=== PATIENT | female | born 1945 | race Caucasian/White ===

== ENCOUNTER 2019-05-23 05:50 | Day surgery (SDC) | payer MEDICARE ==
[2019-05-23] MEDS ORDERED: MAGNESIUM SULFATE 8 MEQ(1GM)/2ML VIAL IV ONE (05:51)
[2019-05-23] MEDS ORDERED: MIDAZOLAM HCL 2MG/2ML VIAL IV ONE (05:51)
[2019-05-23] MEDS ORDERED: DEXAMETHASONE 4 MG/ML 1ML VIAL IVP ONE (05:51)
[2019-05-23] MEDS ORDERED: ROPIVACAINE HCL (NAROPIN) /PF 5MG/ML 20ML VIAL IV ONE (05:51)
[2019-05-23] MEDS ORDERED: GENTAMICIN SULFATE 40 MG/ML VIAL IV ONE (05:51)
[2019-05-23] MEDS ORDERED: LIDOCAINE 2% MDV (20MG/ML) 20ML VIAL IV ONE (05:51)
[2019-05-23] MEDS ORDERED: PROPOFOL 10 MG/ML VIAL IV ONE ×2 (05:51)
[2019-05-23] MEDS ORDERED: VANCOMYCIN 1GM/200ML PREMIX 1 GM/200 ML PIGGYBACK IVPB ONE (06:00)
[2019-05-23] MEDS ORDERED: METOCLOPRAMIDE 10 MG TABLET PO ONE (06:00)
[2019-05-23] MEDS ORDERED: ACETAMINOPHEN 500 MG TABLET PO ONE (06:00)
[2019-05-23] MEDS ORDERED: FAMOTIDINE 20MG TABLET PO ONE (06:00)
[2019-05-23] MEDS ORDERED: SCOPOLAMINE 1 PATCH TDSY TD ONE (06:00)
[2019-05-23] MEDS ORDERED: CEFAZOLIN 2 Gram 2 GM/50 ML BAG IVPB ONE (06:00)
[2019-05-23 06:13] LABS: URINE APPEARANCE SL CLOUDY; URINE BILIRUBIN NEGATIVE (NEGATIVE); URINE BLOOD NEGATIVE (NEGATIVE); URINE COLOR YELLOW; URINE GLUCOSE (UA) NEGATIVE (NEGATIVE); URINE KETONE NEGATIVE (NEGATIVE); URINE LEUKOCYTE ESTERASE SMALL (NEGATIVE); URINE NITRITE NEGATIVE (NEGATIVE); URINE PROTEIN NEGATIVE (NEGATIVE); URINE UROBILINOGEN 0.2 E.U./dL (0.20 - 1.00)
[2019-05-23 06:20] LABS: URINE RBC 0 - 2 (NONE SEEN)
[2019-05-23 06:21] LABS: URINE BACTERIA 2+; URINE MUCUS MODERATE; URINE WBC 16 - 20 (0-2/hpf)
[2019-05-23] MEDS ORDERED: RINGERS SOLUTION,LACTATED 1,000 ML IV ONE ×3 (06:30→09:56)
[2019-05-23 06:51] LABS: ABO GROUP O; ANTIBODY SCREEN NEGATIVE (NEGATIVE); RH TYPE POSITIVE
[2019-05-23] MEDS ORDERED: ACETAMINOPHEN 325 MG TAB PO PRN (08:21)
[2019-05-23] MEDS ORDERED: TRAMADOL HCL 50 MG TABLET PO PRN ×2 (08:21)
[2019-05-23] MEDS ORDERED: KETOROLAC 30 MG/ML VIAL IVP PRN (08:21)
[2019-05-23] MEDS ORDERED: MAGNESIUM HYDROXIDE 30 ML UDC PO PRN (08:21)
[2019-05-23] MEDS ORDERED: HYDROCODONE/APAP 5/325MG TABLET PO PRN ×2 (08:21)
[2019-05-23] MEDS ORDERED: HYDROCODONE/APAP 7.5/325MG TABLET PO PRN (08:21)
[2019-05-23] MEDS ORDERED: ONDANSETRON 4 MG ODT TABLET SL PRN (08:21)
[2019-05-23] MEDS ORDERED: ACETAMINOPHEN W/ CODEINE 300MG/60MG TABLET PO PRN (08:21)
[2019-05-23] MEDS ORDERED: DIPHENHYDRAMINE HCL 25 MG CAPSULE PO PRN (08:21)
[2019-05-23] MEDS ORDERED: AL HYDROX/MAG HYDROX 30ML UD PO PRN (08:21)
[2019-05-23] MEDS ORDERED: PROMETHAZINE HCL 25 MG TABLET PO PRN (08:21)
[2019-05-23] MEDS ORDERED: HYDROMORPHONE HCL 2 MG/ML VIAL IM PRN ×2 (08:21)
[2019-05-23] MEDS ORDERED: METOCLOPRAMIDE 10 MG TABLET PO PRN (08:21)
[2019-05-23] MEDS ORDERED: NALOXONE 0.4 MG/1 ML VIAL IVP PRN (08:21)
[2019-05-23] MEDS ORDERED: ACETAMINOPHEN W/ CODEINE 300MG/30MG TABLET PO PRN (08:21)
[2019-05-23] MEDS ORDERED: BISACODYL 10 MG SUPP RC PRN (08:21)
[2019-05-23] MEDS ORDERED: BUPIVACAINE 0.5% W/EPI MPF 30 ML VIAL SQ ONE (08:46)
[2019-05-23] MEDS ORDERED: BUPIVACAINE LIPOSOME 266MG/20ML VIAL SQ ONE (08:46)
[2019-05-23] MEDS ORDERED: TRANEXAMIC ACID 1,000 MG/10 ML ML IU ONE (08:46)
[2019-05-23] MEDS ORDERED: TRANEXAMIC ACID 1,000 MG/10 ML ML IVPB ONE (08:49)
[2019-05-23] MEDS ORDERED: DEXTROSE 5 % AND 0.9 % NACL 1,000 ML IV PRN (10:30)
[2019-05-23] MEDS ORDERED: VANCOMYCIN HCL 500 MG in 0.9 % SODIUM CHLORIDE 100ML 100 ML IVPB SCH (11:00)
[2019-05-23] MEDS: ACETAMINOPHEN W/ CODEINE 300MG/30MG TABLET PO PRN ×2 (11:23→14:40)
--- NOTE | 2019-05-23 13:20 | Rehab Evaluation ---
Patient Information - Patient Information Diagnosis: R knee DJD Ordered Treatment: PT Evaluate and Treat Status: Initial Evaluation Surgery: Yes (R TKA) Date of Surgery: 05/23/19 Past Medical/Surgical Hx: PAST MEDICAL/SURGICAL HISTORY Past Surgical History eyelid sx; colonoscopy; EGD; PMH - Respiratory Hx Respiratory Disorders Yes Hx Sleep Apnea Yes Hx of CPAP Yes Hx of SOB Yes: exertional only PMH - Cardiovascular Hx Cardiovascular Disorders Yes Hx Edema Yes: little in feet at end of day Hx Hypertension Yes: meds good control Hx Irregular Heartbeat Yes: SVT rx adenosine x3 Hx Palpitations Yes: with SVT Exercise Tolerance Good Comment: avid golfer-3x week PMH - Neuro Hx Neurological Disorders No PMH - GI Hx Gastrointestinal Disorders Yes Hx Abdominal Pain Yes: occasional Hx Gastroesophageal Reflux Yes Hx Ulcer Yes: ?? has taken zantac PMH - Hx Genitourinary Disorders Yes Hx Bladder Problem Yes: stress incont with sneezing PMH - Endocrine Hx Endocrine Disorders Yes Hx Diabetes prediabetic- last A1C 6.2 Hx Thyroid Disease Yes PMH - Musculoskeletal Hx Musculoskeletal Disorders Yes Hx Arthritis Yes: knees,hands,neck and back PMH - Psych Hx Psychiatric Problems Yes Hx Anxiety Yes: "luiza got alot of stress" PMH - Hematology/Oncology Hx Hematology/Oncology No Disorders Premorbid Status: Detail (The patient was independent with all mobility prior to surgery. The patient shared household tasks with her .) Social History: Detail (The rut lives in a one story house with spouse with 2-3 steps and a landing with two handrails. The bathroom has a walk in shower and standard height toilet in the bathroom the patient will be using. No grab bars are present in the bathroom. The patient has a toilet riser seat, front wheeled walker and standard point cane. The patient has a wooden chair that she wants to use as a shower chair.) Precautions: [place], Fall, Other (WBAT on the R LE.) - Time With Patient Treatment Procedures: Detail (Initial Evaluation low complexity.) Subjective Information - Subjective Information Per Patient (The patient has complaints of R knee pain.) Objective Data - Pain Pain Present: Yes Pain Intensity: 7 Pain Scale Used: Numeric (1 - 10) - Visual Perception Appears within normal limits for therapeutic activities - ROM Not within normal limits (The patient's R knee AROM is limited as to be expected following surgery. All other LE AROM is WNL.) - Strength/Tone Not within normal limits (The patient's LE strength was not tested s/p surgery however was WFL.) - Coordination Appears within normal limits for therapeutic activities - Transfers Independent (The patient was independent with sit to and from stand transfer. The patient was encouraged to sit in higher chairs at home.) - Balance Balance Sitting: Good Balance Standing: Good - Sensation Intact - Gait Detail (The patient ambulated with front wheeled walker a distance of 134 feet x 1 WBAT on the R LE with occasional verbal cues for proper technique independently. The patient ambulated on 3 steps with use of railing and folded walker with occasional verbal cues for proper technique and supervision for safety. The patient's was present for to observe ambulation on stairs.) Therapy Assessment - Therapy Assessment Detail (The patient was independent with transfers and ambulation and completed TKA HEP. The patient has met all inpatient PT goals and is discharged from inpt. PT.) Patient Education - Patient Education Teaching Topic: Exercise/Activity (The patient completed TKA HEP including: seated heel slides, ankle pumps, quad sets, guteal sets, hamstring sets. Pt. declined SLR however exercise technique was reviewed.) Response: Return Demonstration Teaching Method: Demonstration, Handout Teaching Recipient: Patient Barriers To Learning: Age Related Problem List - Problem List Physical Therapy Problem List: Detail (Decreased R knee AROM and R LE strength.) Goals - Goals Physical Therapy Goals: All inpt. goals were met. Pt. is to receive Home PT. Prognosis - Prognosis Good Plan - Plan Physical Therapy Plan: All inpt. goals have been met. Pt. is discharged from inpt. PT.
--- NOTE | 2019-05-23 13:53 | Rehab Evaluation ---
Patient Information - Patient Information Diagnosis: R knee DJD Ordered Treatment: OT Evaluate and Treat Status: Initial Evaluation Surgery: Yes (R TKA) Date of Surgery: 05/23/19 Past Medical/Surgical Hx: PAST MEDICAL/SURGICAL HISTORY Past Surgical History eyelid sx; colonoscopy; EGD; PMH - Respiratory Hx Respiratory Disorders Yes Hx Sleep Apnea Yes Hx of CPAP Yes Hx of SOB Yes: exertional only PMH - Cardiovascular Hx Cardiovascular Disorders Yes Hx Edema Yes: little in feet at end of day Hx Hypertension Yes: meds good control Hx Irregular Heartbeat Yes: SVT rx adenosine x3 Hx Palpitations Yes: with SVT Exercise Tolerance Good Comment: robertakim maxfer-3x week PMH - Neuro Hx Neurological Disorders No PMH - GI Hx Gastrointestinal Disorders Yes Hx Abdominal Pain Yes: occasional Hx Gastroesophageal Reflux Yes Hx Ulcer Yes: ?? has taken zantac PMH - Hx Genitourinary Disorders Yes Hx Bladder Problem Yes: stress incont with sneezing PMH - Endocrine Hx Endocrine Disorders Yes Hx Diabetes prediabetic- last A1C 6.2 Hx Thyroid Disease Yes PMH - Musculoskeletal Hx Musculoskeletal Disorders Yes Hx Arthritis Yes: knees,hands,neck and back PMH - Psych Hx Psychiatric Problems Yes Hx Anxiety Yes: "luiza got alot of stress" PMH - Hematology/Oncology Hx Hematology/Oncology No Disorders Premorbid Status: Detail (The patient was independent with all mobility, meal prep, laundry and home mgmt prior to surgery. The patient shared some household tasks with her and he was responsible for yard work.) Social History: Detail (The patient lives in a one story house with spouse with 2-3 steps and a landing with two handrails. The bathroom has a walk in shower and standard height toilet in the bathroom the patient will be using. No grab bars are present in the bathroom. The patient has a toilet riser seat, front wheeled walker and standard point cane. The patient has a wooden chair that she wants to use as a shower chair.) Precautions: [place], Fall, Other (WBAT on the R LE.) - Time With Patient Total Time Spent With Patient (Min): 40 Treatment Procedures: Detail (OT eval low complexity) Subjective Information - Subjective Information Per Patient, Other (Spouse) Objective Data - Pain Pain Present: Yes (02/16) - Mental Status Patient Orientation: Oriented x3 - Visual Perception Appears within normal limits for therapeutic activities - ROM Within normal limits (Rohan UE AROM WNL) - Strength/Tone Within normal limits (Rohan UE strength WNL) - Coordination Appears within normal limits for therapeutic activities - Transfers Independent (Ind with sit to stand from chair height.) - Balance Balance Sitting: Good Balance Standing: Good - Sensation Intact - Gait Detail (Pt ambulating in hallway with 2 wheeled walker and SBA) - ADL's/IADL's Detail (Pt educated and able to demonstrate learning of modified LE dressing techniques including donning pants, carlos sock (with assist) and slip on shoes. Reviewed kitchen and shower safety and modifications, pt verbalized understanding.) Therapy Assessment - Therapy Assessment Detail (Pt is Ind with modified LE dressing techniques.) Problem List - Problem List Occupational Therapy Problem List: Detail (No current IP OT problems identified.) Goals - Goals Occupational Therapy Goals: No current IP OT goals identified. Prognosis - Prognosis Good Plan - Plan Occupational Therapy Plan: No further IP OT recommended. Thank you for this referral.
[2019-05-23] MEDS ORDERED: ATORVASTATIN 20 MG TABLET PO SCH (22:00)
[2019-05-23] MEDS ORDERED: OLANZAPINE 5MG TABLET PO SCH (22:00)
[2019-05-23] MEDS ORDERED: DOCUSATE SODIUM 100 MG CAPSULE PO SCH (22:00)
[2019-05-23] MEDS ORDERED: METOPROLOL TART 25 MG TABLET PO SCH (22:00)
[2019-05-24] MEDS ORDERED: LEVOTHYROXINE SOD 112 MCG TAB PO SCH (07:00)
[2019-05-24] MEDS ORDERED: FLUOXETINE HCL 20 MG CAPSULE PO SCH (10:00)
[2019-05-24] MEDS ORDERED: DIGOXIN 125 MCG TABLET PO SCH (10:00)
--- NOTE | 2019-05-31 06:00 | Operative Note ---
DATE OF SURGERY: 05/23/2019 PREOPERATIVE DIAGNOSIS: End-stage right knee arthrosis. POSTOPERATIVE DIAGNOSIS: End-stage right knee arthrosis. OPERATION: 1. Right total knee arthroplasty. 2. Lateral release. SURGEON: Neville Lowe MD ANESTHESIA: Spinal. ANESTHESIA PROVIDER: Yohana Castle CRNA. COMPLICATIONS: None. ESTIMATED BLOOD LOSS: Minimal. TOURNIQUET TIME: No tourniquet. INDICATIONS: This is a 74-year-old female with end-stage bilateral knee arthrosis. Failed nonoperative treatment. Scheduled for a knee replacement. I explained all risks and benefits in detail for the diagnosis and procedure including but not limited to infection, nerve injury, vessel injury, persistent pain, stiffness, numbness, tingling in the knee, periprosthetic fracture, need for resection arthroplasty if components become infected or loosen, nerve injury, vessel injury, blood clot and need for anticoagulation to prevent blood clots and risks associated with these medications, and need for further procedures. All of her questions were answered. Rehab course was outlined. She agreed to proceed. PROCEDURE: The patient brought to the OR, placed in the supine position, prepped for surgery. Spinal anesthesia induced. The right lower extremity and knee were prepped and draped in sterile fashion. Right knee prepped again with Chloraprep after it was draped. Intraoperative timeout was performed. Next, anterior approach was performed to the knee. The leg was exsanguinated but no tourniquet was used. We used Aquamantys throughout the entire case. The skin and subcutaneous tissue dissected down. Medial and lateral skin flaps were made. We performed Aquamantys cautery throughout the entire each layer of the case. Incised the capsule medially around the medial border of the patella to the tibial tubercle. Incised the vastus medialis in line with its fibers in a mid vastus approach. Everted the patella, partially resected the retropatellar fat pad, elevated the capsule subperiosteally and medially, and flexed the knee. She had [id number] medial compartment arthrosis. Drilled and removed the anterior medial meniscus ACL. Drilled intracondylar drill hole, inserted the intramedullary guide mikhail, 6-degree cutting block. Aligned off the distal femoral condyles, pinned it in +2 mm position, and cut the distal femoral condyles. Next, we placed a sizing jig on the distal femoral condyle and sized it right on a size 7, so we placed the size 7 cutting jig. We dialed the anterior cut so it would come out flush without notching. We cut the cut. It was a good flush cut. We then pinned it and cut the remainder of the chamfer cuts in the usual fashion. Next, placed a size 7 trial femoral component, centered it, pinned it, removed osteophytes off the periphery, inserted the resection collet, reamed out and box osteotomed out the cruciate bone block. Next, then attention was turned to the tibia, removing the remainder of meniscus and placed external alignment jig with the spikes in the tubercular groove off the tibial tubercle 2 fingerbreadths distal to the anterior tibial cortex and referenced for a 7 mm cut off the higher lateral plateau. We then pinned the cutting jig provisionally with 2 anterior-posterior pins. We checked alignment of the cutting jig using a drop mikhail centered on the tibial anatomic axis and ankle, and then cross-pinned it completing its fixation, and cut the tibia. Next, we removed osteophytes off the posterior femoral condyle. Checked the flexion/extension gaps. She had symmetric flexion/extension gaps. We had a 9 mm thick poly insert, allowed for 2-3 mm of varus/valgus laxity in flexion/extension. Overall alignment with cuts in extension and anatomic valgus orientation with alignment mikhail centered on the hip joint and ankle joint. Next, took in knee in flexion and sized the tibial baseplate size 6 and replaced all trial components. Again set the rotation tibial baseplate using the alignment mikhail centered on hip joint and ankle joint. Marked pen crews on the anterior tibial cortex baseplate off the laser crews of the tibial baseplate. Attention was turned to the patella, and measured the patella to be 21 mm. Set the cutting jig at 12 mm to allow for a 9 mm thick poly insert. Cut the patella, chamfered off lateral patellar facet, medialized as much as possible, sized it to be 32 mm, rechecked the thickness of the patella cut. It was right on 07-22. Then drilled 3 peg holes. Mixed cement. Did a trial range of motion. The patella tracked nicely handsfree, slightly tight laterally. Therefore, lateral release with pie crust release was done later. Full extension, flexion to 130 degrees, again symmetric flexion/extension gaps. Next, we then mixed cement. Next, seated the tibial baseplate off the previously placed electrocautery crews, pinned it in place, drilled out, and keel punched the keel hole. We placed a bone plug in the femoral canal hole. We injected the posterior capsule as well after we cauterized with Aquamantys with our 0.5% Marcaine with epinephrine, tranexamic acid, and Exparel mixture. Changed gloves, brought in clean sheets. Copiously irrigated bony surfaces with pulse lavage and antibiotic solution. Precoated the tibial and femoral surfaces and packed down the tibial surface removing excess cement and then the femoral component removing excess cement and then placed a trial tibial poly liner. Held the knee in extension and clamped down the patella component until the cement hardened removing excess cement. Took the knee in flexion, distracted the knee with bone hook and sponge. Removed the trial insert removing any excess cement. Next, then Aquamantys cautery again posteriorly and then injected medial capsule, periosteum, patellar tendon again with our mixture. Distracted the knee with bone hook and sponge and inserted the real tibia poly insert and verified that it was interlocked medial and lateral. We found range of motion to be still the same. Next, we closed the capsule and vastus medialis split with running #2 quill suture, slightly tight laterally again as mentioned. Therefore, we did a pie crust lateral release to relieve some of the tension. Next, then irrigated and closed the skin deep with several buried 2-0 Vicryl, and then a DAJA dressing was applied. Tolerated the procedure well. No intraoperative complications. Sponge, needle, and blade counts correct. Recovery room stable, neurovascularly intact. She will be discharged as an outpatient and follow up in 2 weeks. NIGEL
== END 2019-05-23 15:50 | disposition home or self-care (01) ==
LOC: SUR 05:50 → MEDSURG 10:43 → SUR 15:50
PROVIDERS: ATTEND Orthopaedic Surgery
DX: M17.11 Unilateral primary osteoarthritis, right knee (principal); I10 Essential (primary) hypertension; E03.9 Hypothyroidism, unspecified; E78.00 Pure hypercholesterolemia, unspecified; G25.81 Restless legs syndrome; G47.33 Obstructive sleep apnea (adult) (pediatric)
CPT/HCPCS: 27447; 01402; 64447; 36416; 81001; 82948; 86900; 86901; 86850; J1885; J0690; C9290; J2795; J3370; 76942; C1776; J1580; J7120